=== PATIENT | female | born 1980 | race Asian ===

== ENCOUNTER 2017-08-03 09:46 | Outpatient (CLI) | payer OTHER ==
[2017-08-03 10:39] LABS: ADD UMIC YES; UR ASCORBIC ACID NEGATIVE (NEGATIVE); UR BACTERIA FEW /HPF (NONE SEEN); UR BILIRUBIN (Dip) NEGATIVE (NEGATIVE); UR BLOOD (Dip) NEGATIVE (NEGATIVE); UR CLARITY CLEAR (CLEAR); UR COLOR STRAW (YELLOW); UR GLUCOSE (Dip) NEGATIVE (NEGATIVE); UR KETONES (Dip) NEGATIVE (NEGATIVE); UR LEUKOCYTE ESTERASE (Dip) 1+ Leu/ul (NEGATIVE); UR NITRITE (Dip) NEGATIVE (NEGATIVE); UR RBC 3 /HPF (0-5); UR SPECIFIC GRAVITY (Dip) 1.004 (1.003-1.030); UR SQUAMOUS EPITHELIAL CELL FEW /HPF (FEW); UR TOTAL PROTEIN (Dip) NEGATIVE (NEGATIVE); UR UROBILINOGEN (Dip) NEGATIVE (NEGATIVE); UR WBC 5 /HPF (0-5)
[2017-08-03 10:45] LABS: ADD MAN DIFF? NO
[2017-08-03 10:56] LABS: BASOPHIL # 0.1 10^3/ul (0.0-0.1); BASOPHILS % 0.7 % (0.0-2.0); EOSINOPHILS # 0.3 10^3/ul (0.0-0.5); EOSINOPHILS % 2.7 % (0.0-7.0); HEMATOCRIT 35.3 % (37.0-47.0); HEMOGLOBIN 12.5 g/dl (12.0-16.0); LYMPHOCYTES # 1.6 10^3/ul (0.8-2.9); LYMPHOCYTES % 15.5 % (15.0-51.0); MEAN CORPUSCULAR HEMOGLOBIN 32.5 pg (29.0-33.0); MEAN CORPUSCULAR HGB CONC 35.4 g/dl (32.0-37.0); MEAN CORPUSCULAR VOLUME 91.7 fl (82.0-101.0); MEAN PLATELET VOLUME 9.9 fl (7.4-10.4); MONOCYTE # 0.9 10^3/ul (0.3-0.9); MONOCYTES % 8.4 % (0.0-11.0); NEUTROPHIL # 7.3 10^3/ul (1.6-7.5); NEUTROPHILS % 69.6 % (39.0-77.0); PLATELET COUNT 187 10^3/UL (140-415); RED BLOOD COUNT 3.85 10^6/ul (4.20-5.40); RED CELL DISTRIBUTION WIDTH 14.1 % (11.5-14.5)
[2017-08-03 10:56] LABS: WHITE BLOOD COUNT 10.5 10^3/ul (4.8-10.8)
[2017-08-03 11:11] LABS: ALANINE AMINOTRANSFERASE 29 IU/L (13-69); ALBUMIN 3.3 g/dl (3.3-4.9); ALKALINE PHOSPHATASE 153 IU/L (42-121); ANION GAP 15 (8-16); ASPARTATE AMINO TRANSFERASE 17 IU/L (15-46); BILIRUBIN,INDIRECT 0.1 mg/dl (0-1.1); BILIRUBIN,TOTAL 0.1 mg/dl (0.2-1.3); BLOOD UREA NITROGEN 7 mg/dl (7-20); CALCIUM 8.4 mg/dl (8.4-10.2); CARBON DIOXIDE 23 mmol/L (21-31); CHLORIDE 106 mmol/L (97-110); CREATININE 0.52 mg/dl (0.44-1.00); GLUCOSE 89 mg/dl (70-220); SODIUM 141 mmol/L (135-144); TOTAL PROTEIN 6.3 g/dl (6.1-8.1); URIC ACID 4.1 mg/dl (3.1-7.9)
[2017-08-03 11:17] LABS: POTASSIUM 2.9 mmol/L (3.5-5.1)
[2017-08-03 11:59] LABS: PARTIAL THROMBOPLASTIN TIME 30.2 Sec (25.0-35.0)
[2017-08-03 12:03] LABS: INR 0.93; PROTIME 12.6 Sec (11.9-14.9)
== END 2017-08-03 12:30 | disposition home or self-care (01) ==
LOC: OBT 09:46 → L-D 09:46 → OBT 12:30
DX: O26.893 Other specified pregnancy related conditions, third trimester (principal); Z3A.36 36 weeks gestation of pregnancy; R03.0 Elevated blood-pressure reading, without diagnosis of hypertension
CPT/HCPCS: 76815; 76818; 80053; 81001; 84560; 85025; 85384; 85610; 85730

== ENCOUNTER 2017-08-11 12:54 | Outpatient (CLI) | payer OTHER | END 2017-08-11 15:13 | disposition home or self-care (01) | LOC: OBT 12:54 → L-D 12:54 → OBT 15:13 | DX: O09.523 Supervision of elderly multigravida, third trimester (principal); Z3A.37 37 weeks gestation of pregnancy | CPT/HCPCS: 76818 ==

== ENCOUNTER 2017-08-14 08:01 | Outpatient (CLI) | payer OTHER ==
[2017-08-14 09:19] LABS: POTASSIUM 3.5 mmol/L (3.5-5.1)
== END 2017-08-14 10:46 | disposition home or self-care (01) ==
LOC: OBT 08:01 → L-D 08:01 → OBT 10:46
DX: O09.523 Supervision of elderly multigravida, third trimester (principal); Z3A.38 38 weeks gestation of pregnancy
CPT/HCPCS: 76818; 84132

== ENCOUNTER 2017-08-16 01:37 | Inpatient (IN) | payer OTHER ==
[2017-08-16] MEDS ORDERED: OXYCODONE/ACETAMINOPHEN (5/325) TAB PO (02:30)
[2017-08-16] MEDS ORDERED: BUTORPHANOL 2 MG INJ IV (02:30)
[2017-08-16] MEDS ORDERED: CARBOPROST 250 MCG INJ IM ×2 (02:30→04:30)
[2017-08-16] MEDS: AMPICILLIN 2 GM/NS (PMX) 100 ML IV (02:30)
[2017-08-16] MEDS ORDERED: METHYLERGONOVINE 0.2 MG INJ IM ×2 (02:30→04:30)
[2017-08-16] MEDS ORDERED: MISOPROSTOL 200 MCG TAB PR ×2 (02:30→04:30)
[2017-08-16] MEDS ORDERED: OXYTOCIN 30 UNITS/LR 500 ML IV ×2 (02:30→04:30)
[2017-08-16] MEDS: LACTATED RINGER'S 1,000 ML IV (02:50)
[2017-08-16 03:14] LABS: ADD MAN DIFF? NO
[2017-08-16 03:19] LABS: WHITE BLOOD COUNT 14.1 10^3/ul (4.8-10.8)
[2017-08-16 03:19] LABS: BASOPHIL # 0.1 10^3/ul (0.0-0.1); BASOPHILS % 0.4 % (0.0-2.0); EOSINOPHILS # 0.2 10^3/ul (0.0-0.5); EOSINOPHILS % 1.6 % (0.0-7.0); HEMATOCRIT 38.9 % (37.0-47.0); LYMPHOCYTES # 1.9 10^3/ul (0.8-2.9); LYMPHOCYTES % 13.3 % (15.0-51.0); MEAN CORPUSCULAR HEMOGLOBIN 33.1 pg (29.0-33.0); MEAN PLATELET VOLUME 9.9 fl (7.4-10.4); MONOCYTE # 0.8 10^3/ul (0.3-0.9); MONOCYTES % 5.5 % (0.0-11.0); NEUTROPHILS % 77.8 % (39.0-77.0); PLATELET COUNT 191 10^3/UL (140-415); RED BLOOD COUNT 4.23 10^6/ul (4.20-5.40)
[2017-08-16 03:46] LABS: INR 0.94; PROTIME 12.7 Sec (11.9-14.9)
[2017-08-16 03:47] LABS: PARTIAL THROMBOPLASTIN TIME 29.2 Sec (25.0-35.0)
[2017-08-16] MEDS: OXYTOCIN 30 UNITS/LR 500 ML IV ×2 (04:08→04:22)
[2017-08-16 04:10] LABS: HEPATITIS B SURFACE ANTIGEN NEGATIVE (NEGATIVE)
[2017-08-16] MEDS: IBUPROFEN 600 MG TAB PO ×5 (04:18→23:39)
[2017-08-16] MEDS ORDERED: ZOLPIDEM 5 MG TAB PO (04:30)
[2017-08-16] MEDS ORDERED: OXYCODONE/ASPIRIN (4.88/325) TAB PO ×2 (04:30)
[2017-08-16] MEDS ORDERED: DIBUCAINE 1% 30 GM OINT PR (04:30)
[2017-08-16] MEDS ORDERED: ONDANSETRON 4 MG INJ IV (04:30)
[2017-08-16] MEDS ORDERED: ACETAMINOPHEN 325 MG TAB PO (04:30)
[2017-08-16] MEDS: LIDOCAINE 1% (MPF) 30 ML INJ INJ (04:56)
[2017-08-16] MEDS ORDERED: AMPICILLIN 1 GM/NS (PMX) 50 ML IV (06:30)
[2017-08-16] MEDS: LANOLIN 7 GM TUBE TOP (07:36)
[2017-08-16] MEDS: BENZOCAINE 20% 56 ML SPRAY TOP ×2 (07:37→21:03)
[2017-08-16] MEDS: WITCH HAZEL/GLYCERIN PAD PR ×2 (07:37→21:02)
[2017-08-16 15:29] LABS: RAPID PLASMA REAGIN NONREACTIVE (NR)
[2017-08-17] MEDS: IBUPROFEN 600 MG TAB PO ×2 (05:32→11:37)
[2017-08-17 07:39] LABS: ADD MAN DIFF? NO
[2017-08-17 07:43] LABS: BASOPHIL # 0.1 10^3/ul (0.0-0.1); BASOPHILS % 0.4 % (0.0-2.0); EOSINOPHILS # 0.2 10^3/ul (0.0-0.5); EOSINOPHILS % 1.3 % (0.0-7.0); HEMATOCRIT 36.1 % (37.0-47.0); HEMOGLOBIN 12.6 g/dl (12.0-16.0); LYMPHOCYTES # 1.9 10^3/ul (0.8-2.9); LYMPHOCYTES % 12.9 % (15.0-51.0); MEAN CORPUSCULAR HEMOGLOBIN 32.8 pg (29.0-33.0); MEAN CORPUSCULAR HGB CONC 34.9 g/dl (32.0-37.0); MEAN PLATELET VOLUME 10.2 fl (7.4-10.4); MONOCYTE # 0.7 10^3/ul (0.3-0.9); MONOCYTES % 4.8 % (0.0-11.0); NEUTROPHIL # 11.9 10^3/ul (1.6-7.5); NEUTROPHILS % 79.8 % (39.0-77.0); PLATELET COUNT 187 10^3/UL (140-415); RED BLOOD COUNT 3.84 10^6/ul (4.20-5.40)
[2017-08-17 07:43] LABS: WHITE BLOOD COUNT 14.9 10^3/ul (4.8-10.8)
[2017-08-17] MEDS: INFLUENZA VIRUS VACCINE 0.5 ML (DISPENSING) IM* (09:00)
== END 2017-08-17 15:29 | disposition home or self-care (01) | DRG 775 ==
LOC: OBT 01:37 → L-D 01:38 → OBT 02:14 → L-D 02:16 → PP1 06:36
PROVIDERS: Obstetrics & Gynecology
PROC: 10E0XZZ Delivery of Products of Conception, External Approach (ICD-10-PCS; principal; 2017-08-16)
PROC: 0W8NXZZ Division of Female Perineum, External Approach (ICD-10-PCS; 2017-08-16)
DX: O80 Encounter for full-term uncomplicated delivery (principal); Z37.0 Single live birth; Z3A.38 38 weeks gestation of pregnancy
CPT/HCPCS: 76815; 85025; 85610; 85730; 86592; 86900; 86901; 87340; 90686; 99464